=== PATIENT | male | born 1945 | race Caucasian/White ===

== ENCOUNTER 2019-09-19 08:31 | Outpatient (CLI) | payer MEDICARE | END 2019-09-19 23:59 | disposition home or self-care (01) | LOC: ROC 08:31 | PROVIDERS: ATTEND Radiology Radiation Oncology | DX: C44.42 Squamous cell carcinoma of skin of scalp and neck (principal) | CPT/HCPCS: 99214; G0463 ==

== ENCOUNTER 2019-12-29 07:32 | Outpatient (CLI) | payer MEDICARE | END 2019-12-29 23:59 | disposition home or self-care (01) | LOC: ROC 07:32 | PROVIDERS: ATTEND Radiology Radiation Oncology | DX: C02.9 Malignant neoplasm of tongue, unspecified (principal) | CPT/HCPCS: 99212; G0463 ==

== ENCOUNTER 2020-01-08 15:12 | Inpatient (IN) | payer MEDICARE ==
[~2020-01-08] VITALS: Ht 188 cm; Wt 98.0 kg
[2020-01-08] MEDS ORDERED: SODIUM CHLORIDE FLUSH 10ML SYR IVF ONE (15:30)
--- NOTE | 2020-01-08 15:32 | NUR ---
PATO. REPORT RECEIVED FROM EMS. PT HAD GLF AT HOME D/T DZY(ON AND OFF FOR A MONTH) AND PT HAS OBVIOUS LEFT ANKLE FRACTURE/DISLOCATION TODAY. CMS INTACT. PT'S PAIN LEVEL IS 1/10 WITHOUT MEDS. PT'S AOX4. RESPS EVEN AND UNLABORED. ALL MONITORS IN PLACE. CALL LIGHT WITHIN REACH. EDMD AT BEDSIDE TO EVALUATE AT THIS TIME. EKG DONE AT BEDSIDE.
[2020-01-08] MEDS ORDERED: PROPOFOL 10 MG/ML, 20ML ONE (15:35)
[2020-01-08 15:39] LABS: BASOPHILS # (AUTO) 0.02 x10^3/uL (0-0.1); BASOPHILS % (AUTO) 0 % (0-1); EOSINOPHILS # (AUTO) 0.06 x10^3/uL (0-0.4); EOSINOPHILS % (AUTO) 1 % (1-7); LYMPHOCYTES # (AUTO) 0.86 x10^3/uL (1-3.4); LYMPHOCYTES % (AUTO) 17 % (22-44); MD NO; MEAN CORPUSCULAR HEMOGLOBIN 33.7 pg (27.5-34.5); MEAN CORPUSCULAR HGB CONC 33.3 g/dL (33.2-36.2); MEAN CORPUSCULAR VOLUME 101.1 fL (81-97); MEAN PLATELET VOLUME 7.5 fL (7.4-10.4); MONOCYTES # (AUTO) 0.31 x10^3/uL (0.2-0.8); MONOCYTES % (AUTO) 6 % (2-9); NEUTROPHILS # (AUTO) 3.73 x10^3/uL (1.8-6.8); NEUTROPHILS % (AUTO) 75 % (42-75); PLATELET COUNT 119 x10^3/uL (130-400); RED BLOOD COUNT 3.05 x10^6/uL (4.38-5.82); RED CELL DISTRIBUTION WIDTH 20.4 % (9.4-14.8)
--- NOTE | 2020-01-08 15:45 | NUR ---
EDMD/PT SIGNED ON CONSENT FORM. PT VERBALY UNDERSTANDING.
[2020-01-08 15:48] LABS: INTERNATIONAL NORMALIZED RATIO 1.01 (0.93-1.1); PROTHROMBIN TIME 10.7 Seconds (9.6-11.5)
--- NOTE | 2020-01-08 15:50 | NUR ---
ASSEMBLER FINAL: PTS DAUGHTER, IFEANYI LOCKETT PH [phone] CALLED FOR UPDATE. I UPDATED HER REGARDING HER FATHER +ANKLE FRACTURE AND PLAN FOR ADMIT AND TO BE SEEN BY ORTHO. IFEANYI VOICED HER CONCERNS FOR HYDRATION STATING THAT HER FATHER COMPLETED HIS CHEMO AND RADIATION FOR CANCER ON 12/15 AND SAYS THAT PT HAS NOT BEEN EATING OR DRINKING MUCH. I RELAYED THIS INFORMATION TO THE PTS PRIMARY RN, JESSIKA.
[2020-01-08 15:51] LABS: ALANINE AMINOTRANSFERASE 21 U/L (12-78); ALBUMIN 3.3 g/dL (3.4-5.0); ANION GAP 8 mmol/L (5-15); CALCIUM 9.6 mg/dL (8.5-10.1); CHLORIDE 109 mmol/L (98-107); CREATININE 1.53 mg/dL (0.7-1.3)
--- NOTE | 2020-01-08 15:53 | NUR ---
CLOSED REDUCTION WITH SEDATION IS DONE BY EDMD. PT BACK TO BASELINE. PT'S AOX4. RESPS EVEN AND UNLABORED.
[2020-01-08 15:55] LABS: ALKALINE PHOSPHATASE 72 U/L (45-117); BILIRUBIN,TOTAL 0.6 mg/dL (0.2-1.0); TOTAL PROTEIN 6.6 g/dL (6.4-8.2); TROPONIN I < 0.015 ng/mL (0.000-0.045)
[2020-01-08] MEDS ORDERED: PROPOFOL 10 MG/ML, 20ML IVPush ONE (16:00)
[2020-01-08] MEDS ORDERED: SODIUM CHLORIDE 0.9%, 500ML IVBOLUS ONE (16:00)
[2020-01-08] MEDS ORDERED: MAGNESIUM SULFATE PMX 4GM/100M 100 ML IV ONE (16:00)
--- NOTE | 2020-01-08 16:01 | NUR ---
MEDICATION ORDERED FROM PHARMACY AT THIS TIME.
[2020-01-08] MEDS ORDERED: ALLO100T30 PO ×2 (16:14→16:17)
[2020-01-08] MEDS ORDERED: ATOR40TA78 PO (16:14)
--- NOTE | 2020-01-08 16:14 | NUR ---
NS NIFUSING AT THIS TIME. PT TOLERATED WELL. PT'S AOX4. RESPS EVEN AND UNLABORED.
--- NOTE | 2020-01-08 16:15 | NUR ---
PT TO CT AT THIS TIME.
--- NOTE | 2020-01-08 16:15 | NUR ---
HOSPITALIST AT BEDSIDE TO EVALUATE AT THIS TIME.
--- NOTE | 2020-01-08 16:26 | NUR ---
Bennett henry in [facility] - 01/08/20 at 1628 by BREA REPORT GIVEN TO BOOM LINDSAY ALL QUESTIONS ANSWERED.
--- NOTE | 2020-01-08 16:28 | NUR ---
REPORT GIVEN TO BOOM MANDEL. ALL QUESTIONS ANSWERED.
--- NOTE | 2020-01-08 16:32 | NUR ---
THIS RN CALLED FIEANYI LOCKETT WHO IS PT'S DAUGHTER. THIS RN UPDATED HER REGARDING HER FATHER +ANKLE FRACTURE AND PLAN FOR ADMIT/ROOM NUMBER WELL. ALL QUESTIONS ANSWERED.
[2020-01-08] MEDS: LACTATED RINGERS 1,000 ML IV SCH (17:18)
[2020-01-08 17:19] VITALS: BP 132/74
[2020-01-08 17:25] VITALS: BP 132/74
[2020-01-08] MEDS ORDERED: ONDANSETRON ODT 4 MG PO PRN (17:30)
[2020-01-08] MEDS ORDERED: ACETAMINOPHEN 325 MG TABLET PO PRN (17:30)
[2020-01-08] MEDS ORDERED: POLYETHYLENE GLYCOL 17 GM PACKET PO PRN (17:30)
[2020-01-08] MEDS ORDERED: ONDANSETRON 2MG/ML, 2ML IVPush PRN (17:30)
[2020-01-08] MEDS ORDERED: DOCUSATE 100 MG CAPSULE PO PRN (17:30)
[2020-01-08 19:40] VITALS: BP 124/61
[2020-01-08] MEDS: ATORVASTATIN 40 MG TABLET PO SCH (19:43)
[2020-01-08] MEDS: morphine SULFATE 10 MG/ML, 1ML IVPush PRN ×2 (19:44→23:53)
[2020-01-09 02:57] VITALS: BP 114/64
[2020-01-09] MEDS: LACTATED RINGERS 1,000 ML IV SCH ×2 (03:47→12:38)
[2020-01-09 05:15] LABS: MEAN CORPUSCULAR HEMOGLOBIN 34.7 pg (27.5-34.5); MEAN CORPUSCULAR HGB CONC 34.2 g/dL (33.2-36.2); MEAN CORPUSCULAR VOLUME 101.2 fL (81-97); MEAN PLATELET VOLUME 7.1 fL (7.4-10.4); PLATELET COUNT 90 x10^3/uL (130-400); RED BLOOD COUNT 2.53 x10^6/uL (4.38-5.82); RED CELL DISTRIBUTION WIDTH 20.1 % (9.4-14.8)
[2020-01-09 05:26] LABS: ANION GAP 4 mmol/L (5-15); CALCIUM 9.2 mg/dL (8.5-10.1); CHLORIDE 111 mmol/L (98-107)
[2020-01-09 05:29] LABS: CREATININE 1.28 mg/dL (0.7-1.3)
[2020-01-09 06:06] LABS: BASOPHILS # (AUTO) 0.02 x10^3/uL (0-0.1); BASOPHILS % (AUTO) 1 % (0-1); EOSINOPHILS # (AUTO) 0.07 x10^3/uL (0-0.4); EOSINOPHILS % (AUTO) 2 % (1-7); LYMPHOCYTES # (AUTO) 0.72 x10^3/uL (1-3.4); LYMPHOCYTES % (AUTO) 17 % (22-44); MD SCAN; MONOCYTES # (AUTO) 0.46 x10^3/uL (0.2-0.8); MONOCYTES % (AUTO) 11 % (2-9); NEUTROPHILS # (AUTO) 2.99 x10^3/uL (1.8-6.8); NEUTROPHILS % (AUTO) 70 % (42-75)
[2020-01-09 06:25] VITALS: BP 111/65
[2020-01-09 12:08] VITALS: BP 123/61
[2020-01-09] MEDS: ALLOPURINOL 100 MG TABLET PO SCH (12:39)
[2020-01-09] MEDS: morphine SULFATE 10 MG/ML, 1ML IVPush PRN ×2 (14:56→21:15)
[2020-01-09] MEDS: HEPARIN 5,000 UNITS/ML, 1ML SQ SCH (17:40)
[2020-01-09] MEDS: ATORVASTATIN 40 MG TABLET PO SCH (20:01)
[2020-01-09 21:04] VITALS: BP 121/61
[2020-01-10] VITALS (9 sets, daily range): BP systolic 80–125; BP diastolic 33–71
[2020-01-10 05:16] LABS: ANION GAP 7 mmol/L (5-15); CALCIUM 8.9 mg/dL (8.5-10.1); CHLORIDE 108 mmol/L (98-107)
[2020-01-10 05:19] LABS: CREATININE 1.27 mg/dL (0.7-1.3)
[2020-01-10 05:22] LABS: MEAN CORPUSCULAR HEMOGLOBIN 34.1 pg (27.5-34.5); MEAN CORPUSCULAR VOLUME 100.3 fL (81-97); MEAN PLATELET VOLUME 7.5 fL (7.4-10.4); PLATELET COUNT 82 x10^3/uL (130-400); RED CELL DISTRIBUTION WIDTH 20.3 % (9.4-14.8)
[2020-01-10] MEDS: HEPARIN 5,000 UNITS/ML, 1ML SQ SCH ×2 (05:38→17:34)
[2020-01-10 06:10] LABS: BASOPHILS # (AUTO) 0.02 x10^3/uL (0-0.1); BASOPHILS % (AUTO) 1 % (0-1); EOSINOPHILS # (AUTO) 0.08 x10^3/uL (0-0.4); EOSINOPHILS % (AUTO) 2 % (1-7); LYMPHOCYTES # (AUTO) 0.84 x10^3/uL (1-3.4); LYMPHOCYTES % (AUTO) 22 % (22-44); MD SCAN; MONOCYTES # (AUTO) 0.43 x10^3/uL (0.2-0.8); MONOCYTES % (AUTO) 12 % (2-9); NEUTROPHILS # (AUTO) 2.37 x10^3/uL (1.8-6.8); NEUTROPHILS % (AUTO) 64 % (42-75)
[2020-01-10] MEDS: ALLOPURINOL 100 MG TABLET PO SCH (08:34)
[2020-01-10] MEDS: MULTIVITAMINS/MINERALS TABLET PO SCH (10:08)
[2020-01-10] MEDS ORDERED: MAGNESIUM SULFATE PMX 2GM/50ML 50 ML IV ONE (15:30)
[2020-01-10] MEDS: ATORVASTATIN 40 MG TABLET PO SCH (19:54)
[2020-01-11 01:18] VITALS: BP 118/65
[2020-01-11] MEDS: HEPARIN 5,000 UNITS/ML, 1ML SQ SCH ×2 (05:55→17:45)
[2020-01-11 06:50] LABS: MEAN CORPUSCULAR HEMOGLOBIN 35.2 pg (27.5-34.5); MEAN CORPUSCULAR HGB CONC 35.1 g/dL (33.2-36.2); MEAN CORPUSCULAR VOLUME 100.2 fL (81-97); MEAN PLATELET VOLUME 6.7 fL (7.4-10.4); PLATELET COUNT 87 x10^3/uL (130-400); RED BLOOD COUNT 2.18 x10^6/uL (4.38-5.82); RED CELL DISTRIBUTION WIDTH 19.9 % (9.4-14.8)
[2020-01-11 06:57] LABS: ANION GAP 6 mmol/L (5-15); CALCIUM 9.1 mg/dL (8.5-10.1); CHLORIDE 107 mmol/L (98-107); CREATININE 1.23 mg/dL (0.7-1.3)
[2020-01-11 07:29] VITALS: BP 122/59
[2020-01-11 07:34] LABS: BASOPHILS # (AUTO) 0.01 x10^3/uL (0-0.1); BASOPHILS % (AUTO) 0 % (0-1); EOSINOPHILS # (AUTO) 0.06 x10^3/uL (0-0.4); EOSINOPHILS % (AUTO) 1 % (1-7); LYMPHOCYTES % (AUTO) 18 % (22-44); MD SCAN; MONOCYTES # (AUTO) 0.48 x10^3/uL (0.2-0.8); MONOCYTES % (AUTO) 11 % (2-9); NEUTROPHILS # (AUTO) 3.07 x10^3/uL (1.8-6.8); NEUTROPHILS % (AUTO) 69 % (42-75)
[2020-01-11 07:55] LABS: TROPONIN I < 0.015 ng/mL (0.000-0.045)
[2020-01-11] MEDS ORDERED: ACETAMINOPHEN 325 MG TABLET PO ONE (08:30)
[2020-01-11] MEDS ORDERED: REGADENOSON 0.4 MG/5 ML SYRINGE ONE (09:03)
[2020-01-11 13:42] VITALS: BP 111/61
[2020-01-11 14:09] VITALS: BP 112/64
[2020-01-11] MEDS: CYANOCOBALAMIN 1,000 MCG TABLET PO SCH (14:26)
[2020-01-11] MEDS: MULTIVITAMINS/MINERALS TABLET PO SCH (14:26)
[2020-01-11] MEDS: ALLOPURINOL 100 MG TABLET PO SCH (14:27)
[2020-01-11 16:01] VITALS: BP 113/66
[2020-01-11 19:26] VITALS: BP 105/62
[2020-01-11 19:50] LABS: OCCULT BLOOD NEGATIVE (NEGATIVE)
[2020-01-11] MEDS: ATORVASTATIN 40 MG TABLET PO SCH (20:52)
[2020-01-12 02:13] VITALS: BP 125/71
[2020-01-12 05:15] LABS: ANION GAP 7 mmol/L (5-15); CALCIUM 9.2 mg/dL (8.5-10.1); CHLORIDE 107 mmol/L (98-107); MEAN CORPUSCULAR HEMOGLOBIN 33.1 pg (27.5-34.5); MEAN CORPUSCULAR HGB CONC 33.6 g/dL (33.2-36.2); MEAN CORPUSCULAR VOLUME 98.7 fL (81-97); MEAN PLATELET VOLUME 7.1 fL (7.4-10.4); PLATELET COUNT 93 x10^3/uL (130-400); RED BLOOD COUNT 2.48 x10^6/uL (4.38-5.82)
[2020-01-12 05:16] LABS: CREATININE 1.33 mg/dL (0.7-1.3)
[2020-01-12] MEDS: HEPARIN 5,000 UNITS/ML, 1ML SQ SCH (05:39)
[2020-01-12 05:48] LABS: BASOPHILS # (AUTO) 0.01 x10^3/uL (0-0.1); BASOPHILS % (AUTO) 0 % (0-1); EOSINOPHILS # (AUTO) 0.08 x10^3/uL (0-0.4); EOSINOPHILS % (AUTO) 2 % (1-7); LYMPHOCYTES # (AUTO) 0.63 x10^3/uL (1-3.4); LYMPHOCYTES % (AUTO) 16 % (22-44); MD SCAN; MONOCYTES # (AUTO) 0.45 x10^3/uL (0.2-0.8); MONOCYTES % (AUTO) 11 % (2-9); NEUTROPHILS # (AUTO) 2.85 x10^3/uL (1.8-6.8); NEUTROPHILS % (AUTO) 71 % (42-75)
[2020-01-12 07:39] VITALS: BP 107/68
[2020-01-12] MEDS: ALLOPURINOL 100 MG TABLET PO SCH (08:15)
[2020-01-12] MEDS: CYANOCOBALAMIN 1,000 MCG TABLET PO SCH (08:15)
[2020-01-12] MEDS: MULTIVITAMINS/MINERALS TABLET PO SCH (08:15)
[2020-01-12] MEDS ORDERED: CYAN-27 PO (12:12)
[2020-01-12] MEDS ORDERED: MAGN400T9 PO (12:12)
[2020-01-21] MEDS ORDERED: HYDR-36 PO (10:19)
== END 2020-01-12 14:11 | disposition home health service (06) | DRG 562 ==
LOC: ED 16:02 → EDIP 16:36 → 4WST 17:11
PROVIDERS: ADMIT Hospitalist; ATTEND Internal Medicine
PROC: 0QSKXZZ Reposition Left Fibula, External Approach (ICD-10-PCS; principal; 2020-01-08)
PROC: 0QSHXZZ Reposition Left Tibia, External Approach (ICD-10-PCS; 2020-01-08)
PROC: 30233N1 Transfusion of Nonautologous Red Blood Cells into Peripheral Vein, Percutaneous Approach (ICD-10-PCS; 2020-01-11)
DX: S82.852A Displaced trimalleolar fracture of left lower leg, initial encounter for closed fracture (principal); N17.0 Acute kidney failure with tubular necrosis; D62 Acute posthemorrhagic anemia; C76.0 Malignant neoplasm of head, face and neck; D53.9 Nutritional anemia, unspecified; D63.8 Anemia in other chronic diseases classified elsewhere; E78.5 Hyperlipidemia, unspecified; E83.42 Hypomagnesemia; E87.6 Hypokalemia; G90.9 Disorder of the autonomic nervous system, unspecified; W18.39XA Other fall on same level, initial encounter; I49.3 Ventricular premature depolarization; M10.9 Gout, unspecified; Z85.819 Personal history of malignant neoplasm of unspecified site of lip, oral cavity, and pharynx; Z87.891 Personal history of nicotine dependence; Z92.21 Personal history of antineoplastic chemotherapy; Z79.899 Other long term (current) drug therapy; Y93.89 Activity, other specified; Y92.89 Other specified places as the place of occurrence of the external cause; Y99.8 Other external cause status
CPT/HCPCS: 27818; 36415; 71045; 78452; 80048; 80053; 82272; 82607; 82962; 83540; 83550; 83735; 84443; 84484; 85025; 85610; 86850; 86900; 86923; 93005; 93017; 93306; 99152; G0378; J1644; J2785; A9502; C9898; J2270; J3475; J7040; J7120; P9040

== ENCOUNTER 2020-01-20 05:21 | Observation (INO) | payer MEDICARE ==
[~2020-01-20] VITALS: Ht 188 cm; Wt 96.0 kg
[~2020-01-20 05:21] MED LIST: ALLO100T30 PO; ATOR40TA78 PO; CYAN-27 PO; MAGN400T9 PO
[2020-01-20] MEDS ORDERED: LACTATED RINGERS 1,000 ML IV SCH (05:57)
[2020-01-20 05:59] VITALS: BP 122/73
[2020-01-20] MEDS ORDERED: LIDOCAINE 1%, 20ML ONE (06:14)
[2020-01-20] MEDS ORDERED: BUPIVACAINE/PF 0.5% ONE (06:14)
[2020-01-20] MEDS ORDERED: DEXAMETHASONE 4 MG/ML, 1ML ONE (06:52)
[2020-01-20] MEDS ORDERED: FENTANYL PF 250 MCG/5ML ONE (06:53)
[2020-01-20] MEDS ORDERED: ONDANSETRON ODT 8 MG PO PRN (07:30)
[2020-01-20] MEDS ORDERED: DIAZEPAM 5 MG/ML, 2ML IVPush PRN (07:30)
[2020-01-20] MEDS ORDERED: HYDROmorphone 2 MG/ML, 1ML IVPush PRN (07:30)
[2020-01-20] MEDS ORDERED: hydrALAzine 20 MG/ML, 1ML IV PRN (07:30)
[2020-01-20] MEDS ORDERED: PROMETHAZINE 12.5 MG SUPP PR PRN (07:30)
[2020-01-20] MEDS ORDERED: MIDAZOLAM 1 MG/ML, 2ML IV PRN (07:30)
[2020-01-20] MEDS ORDERED: PROMETHAZINE 25 MG/ML, 1ML IV PRN (07:30)
[2020-01-20] MEDS ORDERED: OXYcodone 5 MG/5 ML ORAL.SOL UDC PO PRN ×3 (07:30→17:00)
[2020-01-20] MEDS ORDERED: ALBUTEROL SULFATE 2.5 MG/3 ML NPPB PRN (07:30)
[2020-01-20] MEDS ORDERED: HALOPERIDOL 5 MG/ML IV PRN (07:30)
[2020-01-20] MEDS ORDERED: LABETALOL 5MG/ML, 20ML IV PRN (07:30)
[2020-01-20] MEDS ORDERED: ACETAMINOPHEN 325 MG TABLET PO PRN ×2 (07:30→18:30)
[2020-01-20] MEDS ORDERED: MEPERIDINE/PF 25MG/ML,1ML IVPush PRN (07:30)
[2020-01-20] MEDS ORDERED: FENTANYL PF 100 MCG/2ML IV PRN (07:30)
[2020-01-20] MEDS ORDERED: ONDANSETRON 2MG/ML, 2ML IV PRN ×2 (07:30→17:00)
[2020-01-20] MEDS ORDERED: EPHEDRINE 50 MG/ML, 1ML IVPush PRN (07:30)
[2020-01-20] MEDS ORDERED: PROPOFOL 10 MG/ML, 20ML ONE (09:52)
[2020-01-20] MEDS ORDERED: CEFAZOLIN 1,000 MG ONE ×2 (09:52→09:53)
[2020-01-20] MEDS ORDERED: ROCURONIUM 10MG/ML,5ML ONE (09:53)
[2020-01-20] MEDS ORDERED: ONDANSETRON 2MG/ML, 2ML ONE ×2 (09:53)
[2020-01-20] MEDS ORDERED: SUCCINYLCHOLINE 20 MG/ML, 10ML ONE (09:53)
[2020-01-20] MEDS ORDERED: ONDANSETRON 2MG/ML, 2ML IVPush PRN (12:00)
[2020-01-20] MEDS ORDERED: HYDROmorphone 1 MG/ML, 1ML INJ IM PRN ×2 (12:00→17:00)
[2020-01-20] MEDS ORDERED: PROMETHAZINE 25 MG/ML, 1ML IM PRN ×2 (12:00→17:00)
[2020-01-20 16:30] VITALS: BP 101/61
[2020-01-20 19:36] VITALS: BP 105/81
[2020-01-21] MEDS: HYDROcodone/APAP 5/325 TABLET PO PRN ×2 (00:41→05:40)
[2020-01-21 01:03] VITALS: BP 112/79
[2020-01-21 06:39] VITALS: BP 93/56
[2020-01-21] MEDS ORDERED: ALLOPURINOL 100 MG TABLET PO SCH (09:00)
[2020-01-21] MEDS ORDERED: HYDR-3246 PO (10:19)
== END 2020-01-21 10:33 | disposition home or self-care (01) ==
LOC: OUT 05:21 → 4NE 16:18 → OUT 18:12
PROVIDERS: ADMIT Orthopaedic Surgery Foot and Ankle Surgery; ATTEND Orthopaedic Surgery Foot and Ankle Surgery
DX: S82.852B Displaced trimalleolar fracture of left lower leg, initial encounter for open fracture type I or II (principal); R42 Dizziness and giddiness; Z79.899 Other long term (current) drug therapy; W18.39XA Other fall on same level, initial encounter; Y93.89 Activity, other specified; Y92.89 Other specified places as the place of occurrence of the external cause
CPT/HCPCS: 11012; 27822; 27829; 73610; 76000; 97161; 97530; C1713; G0378; J0330; J0690; J1100; J2405; J2704; J3010; J7120

== ENCOUNTER → 2020-02-01 | Outpatient (CLI) | payer MEDICARE ==
[~2020-02-01] MED LIST changes: +HYDR-36 PO
== END | disposition home or self-care (01) ==
LOC: EDSTATUS 12-06 20:00 → ROC 07:57
PROVIDERS: ATTEND Radiology Radiation Oncology
DX: C02.3 Malignant neoplasm of anterior two-thirds of tongue, part unspecified (principal)
CPT/HCPCS: 99212; G0463

== ENCOUNTER 2020-03-07 09:15 | Outpatient (CLI) | payer MEDICARE ==
[~2020-03-07 09:15] MED LIST changes: +HYDR-3246 PO; -HYDR-36 PO
== END 2020-03-07 23:59 | disposition home or self-care (01) ==
LOC: ROC 09:15
PROVIDERS: ATTEND Radiology Radiation Oncology
DX: Z08 Encounter for follow-up examination after completed treatment for malignant neoplasm (principal); C02.9 Malignant neoplasm of tongue, unspecified; C79.89 Secondary malignant neoplasm of other specified sites; N18.2 Chronic kidney disease, stage 2 (mild); E78.5 Hyperlipidemia, unspecified; M10.9 Gout, unspecified; Z79.899 Other long term (current) drug therapy; Z98.890 Other specified postprocedural states; Z87.891 Personal history of nicotine dependence; Z85.118 Personal history of other malignant neoplasm of bronchus and lung; Z85.810 Personal history of malignant neoplasm of tongue
CPT/HCPCS: 99212; G0463

== ENCOUNTER 2020-03-09 07:07 | Day surgery (SDC) | payer MEDICARE ==
[2020-03-09] MEDS ORDERED: SODIUM CHLORIDE 0.9% 1,000 ML IV SCH (08:00)
[2020-03-09] MEDS ORDERED: LIDOCAINE-MPF 1%, 5ML ONE (09:01)
[2020-03-09] MEDS ORDERED: MIDAZOLAM 1 MG/ML, 5ML ONE (09:06)
[2020-03-09] MEDS ORDERED: FENTANYL PF 100 MCG/2ML ONE (09:06)
[2020-03-09] MEDS ORDERED: NALOXONE 1 MG/ML, 2ML ONE (09:07)
[2020-03-09] MEDS ORDERED: FLUMAZENIL 0.1 MG/1 ML, 5ML ONE (09:07)
== END 2020-03-09 12:20 | disposition home or self-care (01) ==
LOC: OUT 07:07
PROVIDERS: ATTEND Internal Medicine Hematology & Oncology
DX: R91.1 Solitary pulmonary nodule (principal); C78.01 Secondary malignant neoplasm of right lung; K11.6 Mucocele of salivary gland; M10.9 Gout, unspecified; N18.2 Chronic kidney disease, stage 2 (mild); E78.5 Hyperlipidemia, unspecified; Z79.899 Other long term (current) drug therapy; Z87.891 Personal history of nicotine dependence; Z85.810 Personal history of malignant neoplasm of tongue; Z92.3 Personal history of irradiation; Z98.890 Other specified postprocedural states; Z82.49 Family history of ischemic heart disease and other diseases of the circulatory system
CPT/HCPCS: 10160; 32405; 71045; 76942; 77012; 88112; 88305; 88341; 88342; 99156; 99157; J2250; J3010; 75989; J2310

== ENCOUNTER 2020-03-22 10:49 | Outpatient (CLI) | payer MEDICARE | END 2020-03-22 23:59 | disposition home or self-care (01) | LOC: ROC 10:49 | PROVIDERS: ATTEND Radiology Radiation Oncology | DX: C02.9 Malignant neoplasm of tongue, unspecified (principal); C78.01 Secondary malignant neoplasm of right lung; C77.0 Secondary and unspecified malignant neoplasm of lymph nodes of head, face and neck; N18.2 Chronic kidney disease, stage 2 (mild); E78.5 Hyperlipidemia, unspecified; Z79.899 Other long term (current) drug therapy; Z87.891 Personal history of nicotine dependence | CPT/HCPCS: 99213; G0463 ==

== ENCOUNTER 2020-05-09 12:54 | Outpatient (CLI) | payer MEDICARE ==
[~2020-05-09 12:54] MED LIST changes: +LIDOCAINE 1%, 10ML ONE
== END 2020-05-09 23:59 | disposition home or self-care (01) ==
LOC: RAD 12:54
PROVIDERS: ATTEND Internal Medicine Hematology & Oncology
DX: K11.6 Mucocele of salivary gland (principal); E78.5 Hyperlipidemia, unspecified; N18.2 Chronic kidney disease, stage 2 (mild); M10.9 Gout, unspecified; Z79.899 Other long term (current) drug therapy; Z85.810 Personal history of malignant neoplasm of tongue; Z87.891 Personal history of nicotine dependence; Z90.49 Acquired absence of other specified parts of digestive tract; Z98.890 Other specified postprocedural states; Z82.49 Family history of ischemic heart disease and other diseases of the circulatory system
CPT/HCPCS: 10030; 75989; 76937; 88112; 88305

== ENCOUNTER 2020-07-27 08:05 | Outpatient (CLI) | payer MEDICARE ==
[~2020-07-27 08:05] MED LIST changes: -LIDOCAINE 1%, 10ML ONE
== END 2020-07-27 23:59 | disposition home or self-care (01) ==
LOC: ROC 08:05
PROVIDERS: ATTEND Radiology Radiation Oncology
DX: C78.01 Secondary malignant neoplasm of right lung (principal); C02.9 Malignant neoplasm of tongue, unspecified; C77.0 Secondary and unspecified malignant neoplasm of lymph nodes of head, face and neck; E78.5 Hyperlipidemia, unspecified; N18.30 Chronic kidney disease, stage 3 unspecified; M10.9 Gout, unspecified
CPT/HCPCS: 99213; G0463

== ENCOUNTER 2020-12-18 09:53 | Day surgery (SDC) | payer MEDICARE ==
[~2020-12-18] VITALS: Ht 188 cm; Wt 73.9 kg
[~2020-12-18 09:53] MED LIST changes: -HYDR-3246 PO; +HYDR-3248 PO
[2020-12-18 10:46] VITALS: BP 145/75
[2020-12-18] MEDS ORDERED: CEFAZOLIN PMX 1GM/50ML 50 ML IV ONE (10:49)
[2020-12-18] MEDS ORDERED: SODIUM CHLORIDE 0.9% 1,000 ML IV SCH (11:00)
[2020-12-18] MEDS ORDERED: LIDOCAINE 1%, 20ML ONE (11:32)
[2020-12-18] MEDS ORDERED: FENTANYL PF 100 MCG/2ML ONE (12:03)
[2020-12-18] MEDS ORDERED: FLUMAZENIL 0.1 MG/1 ML, 5ML ONE (12:03)
[2020-12-18] MEDS ORDERED: MIDAZOLAM 1 MG/ML, 5ML ONE (12:03)
[2020-12-18] MEDS ORDERED: NALOXONE 1 MG/ML, 2ML ONE (12:04)
[2020-12-18] MEDS ORDERED: LIDOCAINE GEL 2%, 5ML ONE (12:33)
== END 2020-12-18 13:55 | disposition home or self-care (01) ==
LOC: OUT 09:53
PROVIDERS: ATTEND Internal Medicine Hematology & Oncology
DX: C02.2 Malignant neoplasm of ventral surface of tongue (principal); M10.9 Gout, unspecified; N18.2 Chronic kidney disease, stage 2 (mild); Z87.891 Personal history of nicotine dependence
CPT/HCPCS: 49440; J0690; J2250; J3010; J7030; J2310

== ENCOUNTER 2020-12-31 07:30 | Day surgery (SDC) | payer MEDICARE ==
[2020-12-28 14:31] LABS: MEAN CORPUSCULAR HEMOGLOBIN 31.5 pg (27.5-34.5); MEAN CORPUSCULAR HGB CONC 32.6 g/dL (33.2-36.2); MEAN PLATELET VOLUME 8.2 fL (7.4-10.4); PLATELET COUNT 178 x10^3/uL (130-400); RED BLOOD COUNT 3.24 x10^6/uL (4.38-5.82); RED CELL DISTRIBUTION WIDTH 15.4 % (9.4-14.8)
[2020-12-28 14:38] LABS: ANION GAP 5 mmol/L (5-15); CALCIUM 9.1 mg/dL (8.5-10.1); CHLORIDE 105 mmol/L (98-107); CREATININE 1.42 mg/dL (0.7-1.3)
[2020-12-28 14:39] LABS: MD YES
[2020-12-28 15:04] LABS: BAND#(MANUAL) 0.56 x10^3/uL; BANDS%(MANUAL) 4 % (0-7); EOS#(MANUAL) 0.14 x10^3/uL (0.0-0.4); EOS% (MANUAL) 1 % (1-7); LYMPH#(MANUAL) 0.42 x10^3/uL (1-3.4); LYMPHS% (MANUAL) 3 % (22-44); METAMYELOCYTES# (MANUAL) 0.14 x10^3/uL (0-0); METAMYELOCYTES% (MANUAL) 1 % (0-1); MONOS#(MANUAL) 0.28 x10^3/uL (0.3-2.7); MONOS% (MANUAL) 2 % (2-9); SEG#(MANUAL) 12.37 x10^3/uL (1.8-6.8); SEGS% (MANUAL) 89 % (42-75)
[2020-12-28 15:06] LABS: <PLATELET ESTIMATE> ADEQUATE; <PLT MORPHOLOGY> NORMAL PLT MORPH; ANISOCYTOSIS 1+
[~2020-12-31] VITALS: Ht 188 cm; Wt 74.8 kg
[~2020-12-31 07:30] MED LIST changes: +ALLO300T PO; +CARBOPLATIN; +MULT-658 PO; +ZOLP10TA PO; +[UNRECOGNIZED DRUG - OTHER]
[2020-12-31] MEDS ORDERED: FENTANYL PF 250 MCG/5ML ONE (08:01)
[2020-12-31 08:11] VITALS: BP 108/70
[2020-12-31] MEDS ORDERED: EPINEPHRINE 1 MG/ML, 1ML ONE (08:19)
[2020-12-31] MEDS ORDERED: BUPIVACAINE/PF 0.5% ONE (08:19)
[2020-12-31] MEDS ORDERED: CHLORHEXIDINE 15 ML UDC MM ONE (08:30)
[2020-12-31] MEDS ORDERED: LACTATED RINGERS 1,000 ML IV SCH (08:30)
[2020-12-31] MEDS ORDERED: BUPIVACAINE/PF-EPI 0.5% 1:200K INFIL ONE (10:24)
[2020-12-31] MEDS ORDERED: hydrALAzine 20 MG/ML, 1ML IV PRN (11:00)
[2020-12-31] MEDS ORDERED: LABETALOL 5MG/ML, 20ML IV PRN (11:00)
[2020-12-31] MEDS ORDERED: HYDROmorphone 1 MG/ML, 1ML INJ IVPush PRN (11:00)
[2020-12-31] MEDS ORDERED: PROMETHAZINE 25 MG/ML, 1ML IVPush PRN (11:00)
[2020-12-31] MEDS ORDERED: METOCLOPRAMIDE 5 MG/ML, 2ML IVPush PRN (11:00)
[2020-12-31] MEDS ORDERED: ONDANSETRON 2MG/ML, 2ML IVPush PRN (11:00)
[2020-12-31] MEDS ORDERED: OXYcodone 5 MG/5 ML ORAL.SOL UDC PO PRN (11:00)
[2020-12-31] MEDS ORDERED: ACETAMINOPHEN 325 MG TABLET PO PRN (11:00)
[2020-12-31] MEDS ORDERED: DIAZEPAM 5 MG/ML, 2ML IVPush PRN (11:00)
[2020-12-31] MEDS ORDERED: DIPHENHYDRAMINE 50 MG/ML, 1ML IVPush PRN (11:00)
[2020-12-31] MEDS ORDERED: EPHEDRINE 50 MG/ML, 1ML IVPush PRN (11:00)
[2020-12-31] MEDS ORDERED: HALOPERIDOL 5 MG/ML IV PRN (11:00)
[2020-12-31] MEDS ORDERED: METOPROLOL 1 MG/ML, 5ML IV PRN (11:00)
[2020-12-31] MEDS ORDERED: FENTANYL PF 100 MCG/2ML IV PRN (11:00)
[2020-12-31] MEDS ORDERED: OXYC5SOL8 GT (11:02)
[2020-12-31] MEDS ORDERED: ACET650S21 GT (11:02)
[2020-12-31] MEDS ORDERED: IBUP100O26 GT (11:02)
[2020-12-31] MEDS ORDERED: FENTANYL PF 100 MCG/2ML ONE (11:17)
[2020-12-31] MEDS ORDERED: OXYcodone 5 MG/5 ML ORAL.SOL UDC ONE (11:35)
[2020-12-31] MEDS ORDERED: ACETAMINOPHEN 650 MG/20.3 ML UDC ONE (11:40)
== END 2020-12-31 13:15 | disposition home or self-care (01) ==
LOC: OUT 07:30
PROVIDERS: ATTEND Surgery
DX: C76.0 Malignant neoplasm of head, face and neck (principal); G43.909 Migraine, unspecified, not intractable, without status migrainosus; M10.9 Gout, unspecified; N18.9 Chronic kidney disease, unspecified; Z20.822 Contact with and (suspected) exposure to COVID-19; Z79.899 Other long term (current) drug therapy; Z90.89 Acquired absence of other organs; Z98.890 Other specified postprocedural states
CPT/HCPCS: 36415; 43653; 80048; 85025; 93005; B4087; J0171; J3010; J7120; U0003

== ENCOUNTER 2021-02-01 11:59 | Emergency (ER) | payer MEDICARE ==
[~2021-02-01] VITALS: Ht 188 cm; Wt 72.1 kg
[~2021-02-01 11:59] MED LIST changes: +ACET650S21 GT; +IBUP100O26 GT; +MIDO5TAB9 PO; +OXYC5SOL8 GT
--- NOTE | 2021-02-01 12:16 | NUR ---
ORDERED 18F 7-10 ML
--- NOTE | 2021-02-01 13:51 | NUR ---
BREAK RN: PT AT IR FOR TUBE PLACEMENT.
--- NOTE | 2021-02-01 14:17 | NUR ---
REPORT GIVEN TO PEDRITO DE LA TORRE RN.
--- NOTE | 2021-02-01 14:32 | NUR ---
Pt back from IR, tolerated well
[2021-02-01] MEDS ORDERED: VISIPAQUE 320MG/ML, 50ML BOTTLE ONE (14:36)
[2021-02-01 14:46] VITALS: BP 132/74
== END 2021-02-01 14:48 | disposition home or self-care (01) ==
LOC: ED 14:46
DX: C32.9 Malignant neoplasm of larynx, unspecified (principal); Z46.59 Encounter for fitting and adjustment of other gastrointestinal appliance and device; I95.9 Hypotension, unspecified; Z87.891 Personal history of nicotine dependence
CPT/HCPCS: 49450; 99284; C1729; Q9967; 49440

== ENCOUNTER 2021-04-08 09:11 | Outpatient (CLI) | payer MEDICARE ==
[~2021-04-08 09:11] MED LIST changes: +ONDA8TAB18 PO; +PROC10TA78 PO
[2021-04-08] MEDS ORDERED: OMNIPAQUE 350 MG/ML, 100ML BOTTLE ONE (11:00)
== END 2021-04-08 23:59 | disposition home or self-care (01) ==
LOC: CFH 09:11
PROVIDERS: ATTEND Internal Medicine Hematology & Oncology
DX: C02.2 Malignant neoplasm of ventral surface of tongue (principal); I82.C12 Acute embolism and thrombosis of left internal jugular vein; M50.30 Other cervical disc degeneration, unspecified cervical region
CPT/HCPCS: 70491; Q9967